=== PATIENT | male | born 1970 | race Two or more races ===

== ENCOUNTER → 2024-05-22 | Outpatient (CLI) | payer MEDICAID, SELFPAY ==
--- NOTE | 2024-05-22 11:30 | XR_ITS ---
Examination: CT abdomen and pelvis without contrast. Coronal 3-D reconstructions. Sagittal 2-D reconstructions. Date and time of exam:May 14, 2024 1210 hrs. Indications: Left-sided abdominal pain beginning 3 years ago CTDI: vol (mGy): 7.93 DLP: (mGycm): 452 Technique: Axial images of the abdomen have been obtained, 3 mm slice thickness Intravenous contrast material has not been administered. Low dose protocols were performed. One or more of the following dose reduction techniques were used; automated exposure control, adjustment of the mA and/or KV according to patient size, use of iterative reconstruction technique. Findings: Fatty infiltration throughout the liver Contracted gallbladder Spleen not enlarged No pancreatic or adrenal mass No renal or ureteral calculi, no hydronephrosis Abdominal aortic calcification no aneurysmal dilatation No pericecal inflammatory change No bowel obstruction No diverticulitis Intact urinary bladder No prostatomegaly [id number] advanced degenerative disc disease with 5 mm central lumbar disc bulge Impression: Fatty liver No renal or ureteral calculi, no hydronephrosis No CT findings of appendicitis bowel obstruction or diverticulitis
== END | disposition home or self-care (01) ==
LOC: CCTX 11:54
PROVIDERS: PCP Student in an Organized Health Care Education/Training Program; Referring Provider Student in an Organized Health Care Education/Training Program; Visit Provider Student in an Organized Health Care Education/Training Program
DX: K76.0 Fatty (change of) liver, not elsewhere classified (principal)
CPT/HCPCS: 74176

== ENCOUNTER 2024-12-16 12:00 | Day surgery (SDC) | payer MEDICAID, SELFPAY ==
[2024-12-15 11:16] VITALS: BMI 30.2
[2024-12-16] VITALS (11 sets, daily range): BP systolic 92–123; BP diastolic 62–79; PULSE 51–60; RESP 15–22; TEMP 36.6–36.7; O2SAT 95–99; BMI 29.7
[2024-12-16] MEDS: fentaNYL CIT INJ 50 mCg/ML AMP 2ML (ASD USE ONLY) IVP (13:14)
[2024-12-16] MEDS: RINGERS LACTATED 1000 ML 1,000 ML 125 ML IV (13:14)
[2024-12-16] MEDS: MIDAZOLAM INJ 1 MG/ML VIAL 2 ML (ASD USE ONLY) 2 MG IVP (13:14)
== END 2024-12-16 14:20 | disposition home or self-care (01) ==
PROVIDERS: PCP Student in an Organized Health Care Education/Training Program; Referring Provider Surgery; Visit Provider Surgery
PROC: 0DBE8ZX Excision of Large Intestine, Via Natural or Artificial Opening Endoscopic, Diagnostic (ICD-10-PCS; CPT 45380; principal; 2024-12-16 13:00)
DX: Z12.11 Encounter for screening for malignant neoplasm of colon (principal)
CPT/HCPCS: 45378; A4217; A4649; J2250; J3010; J7120

== ENCOUNTER → 2025-02-03 | Outpatient (CLI) | payer MEDICAID, SELFPAY ==
--- NOTE | 2025-02-03 10:00 | XR_ITS ---
Examination: CT lung low dose screening, without contrast. 2-D sagittal reconstructions. 2-D coronal reconstructions. 3-D reconstructions. Date and time of exam: February 03, 2025, 1018 hours INDICATIONS: Smoking history 30 years CTDI: vol (mGy): 10.1 DLP: (mGycm): 362 Technique: Multiple 1.25 mm axial sections of the lung low-dose screening without contrast have been obtained. 2-D sagittal and coronal reconstructions have been obtained. 3-D reconstructions have been obtained. Low dose protocols were performed. One or more of the following dose reduction techniques were used; automated exposure control, adjustment of the mA and/or KV according to patient size, use of iterative reconstruction technique. Findings: No thoracic aortic aneurysm dilatation Pulmonary artery segments are not enlarged No paratracheal tracheobronchial or bronchopulmonary adenopathy 8 mm calcified pulmonary nodule right lower lobe No noncalcified pulmonary nodules No pneumonia or pulmonary edema or pleural disease No visualized liver or splenic lesion No gallstones IMPRESSION: No mediastinal lymphadenopathy 8 mm calcified pulmonary nodule right lower lobe, likely granuloma
== END | disposition home or self-care (01) ==
DX: Z12.2 Encounter for screening for malignant neoplasm of respiratory organs (principal); R91.1 Solitary pulmonary nodule
CPT/HCPCS: 71271